=== PATIENT | female | born 1935 | race Hispanic/Latino ===

== ENCOUNTER 2019-04-30 09:05 | Outpatient (CLI) | payer MEDICARE, MEDICAID ==
--- NOTE | 2019-04-30 09:47 | RAD ---
XR Thoracic Spine 3 V STANDARD: 04/30/2019 12:00 AM CLINICAL INDICATION: Fibromyalgia COMPARISON: None. FINDINGS: Fracture:No fracture. Arthropathy:Multilevel mild endplate degenerative changes are present. There is thoracic kyphosis as well as S-shaped curvature of the thoracic spine. Incidental findings:None of significance. IMPRESSION: Multilevel mild degenerative change. There is thoracic kyphosis and S-shaped curvature of the thoracic spine..
== END 2019-04-30 09:06 | disposition home or self-care (01) ==
LOC: RAD 09:05
PROVIDERS: ATTEND Internal Medicine Rheumatology
DX: M79.7 Fibromyalgia (principal); M47.814 Spondylosis without myelopathy or radiculopathy, thoracic region; M40.204 Unspecified kyphosis, thoracic region
CPT/HCPCS: 36415; 72072; 80053; 82306; 83970; 84439; 84443

== ENCOUNTER 2019-05-01 09:02 | Outpatient (CLI) | payer MEDICARE, MEDICAID | END 2019-05-01 09:03 | disposition home or self-care (01) | LOC: BICMAMMO 09:02 | PROVIDERS: ATTEND Internal Medicine Rheumatology | DX: M81.0 Age-related osteoporosis without current pathological fracture (principal); M85.88 Other specified disorders of bone density and structure, other site | CPT/HCPCS: 77080 ==

== ENCOUNTER 2019-05-03 14:17 | Outpatient (CLI) | payer MEDICARE, MEDICAID ==
--- NOTE | 2019-05-03 15:43 | BD ---
Exam: DEXA Bone Density 05/03/19 HISTORY: 83-year-old postmenopausal female for screening. COMPARISON: 11/21/09. FINDINGS: Lumbar Spine: BMD (g/cm2) T-SCORE L1 0.773 -2.0 L2 0.845 -1.7 L3 1.005 -0.7 L4 1.007 -0.5 L1-L4 0.913 -1.2 Left Femoral Neck: 0.572 -2.5 Total Proximal Left Femur: 0.882 -0.5 Right femoral Neck: 0.522 -2.9 Total Proximal Right Femur: 0.676 -2.2 Impression: Osteoporosis. POS: ROSEANN
== END 2019-05-03 14:18 | disposition home or self-care (01) ==
LOC: BICMAMMO 14:17
PROVIDERS: ATTEND Internal Medicine Rheumatology
DX: M81.0 Age-related osteoporosis without current pathological fracture (principal); M85.88 Other specified disorders of bone density and structure, other site
CPT/HCPCS: 77080